=== PATIENT | female | born 1970 | race Caucasian/White ===

== ENCOUNTER 2018-06-23 05:01 | Inpatient (IN) ==
--- NOTE | 2018-05-08 08:47 | Anesthesiology Consultation ---
Date of Service May 08, 2018 Assessment & Plan Chart Review Chart Review: Acceptable Risk for Surgery and Patient NOT seen in Pre Admission Testing Consults Requested none ASA ASA2 Proposed Anesthesia Anesthesia Type: MAC Spinal History Surgery Operation Date: 06/23/18 07:00 Proposed Procedures p Right Anterior Total Hip Arthroplasty - Cornelio Funk DO Height/Weight Height: 5 ft 7 in Weight: 76.204 kg Allergies Allergy/AdvReac Type Severity Reaction Status Date / Time Penicillins Allergy Hives Verified 05/04/18 13:30 Medications Home Medications Medication Instructions Recorded Confirmed Last Taken pizzbgr-fcxfzzxgqcyny-pmzgenwt 2 tab PO Q6H PRN 02/24/18 05/04/18 04/18/18 [Excedrin Migraine] calcium carbonate-vitamin D3 1 cap PO BID 02/24/18 05/04/18 04/14/18 [Calcium 600 + D(3)] ibuprofen 600 mg PO TID PRN 02/24/18 05/04/18 03/29/18 multivitamin 1 tab PO DAILY 02/24/18 05/04/18 04/14/18 naproxen sodium [Aleve] 220 mg PO BID PRN 02/24/18 05/04/18 04/14/18 aspirin [Ecotrin Low Strength] 81 mg PO BID #84 tab 04/30/18 05/04/18 Unknown tramadol 50 mg PO Q6H PRN #40 tab 04/30/18 05/04/18 Unknown acetaminophen [Tylenol Extra 1,000 mg PO Q4H PRN 05/04/18 05/04/18 Unknown Strength] Beta Eliza Beta Eliza Taken Within 24 Hours: No Past Medical History Medical History Anemia Cardiac murmur YOUNGER YEARS (NO LONGER HAS) Depression DX 10 YEARS AGO (NO CURRENT PROBLEMS) Helicobacter pylori (H. pylori) Hyperlipidemia Hypoalbuminemia Migraine Uterine polyp Past Family History Family History Brother Family history of diabetes mellitus Mother Family hx of colon cancer Past Surgical History Surgical History History of esophagogastroduodenoscopy (EGD) History of tooth extraction ORAL IMPLANT History of total hip arthroplasty LEFT ANTERIOR HIP REPLACEMENT (04/2018) Past Anesthesia History No Hx of Anesthesia Complications and No Family Hx of Anesthesia Complications History of PONV No Motion Sickness Screening History of Motion Sickness: No Social History Smoking Status: Never smoker Do You Dip or Chew Tobacco: No Hx Alcohol Use: No Hx Substance Use: No substance use type: does not use Exercise / Class Metabolic Activity III < 4 Walking/Shop/Light housework Testing Electrocardiogram Date: 02/24/18 Findings: + SB @ (At 51) Chest X-Ray Date: 02/24/18 Findings: + NAD Laboratory Results WBC: 10.73 Hc.3 Hct: 27.9 PLATELETS: 205 SODIUM: 140 POTASSIUM: 4.0 CHLORIDE: 110 CO2: 26 BUN: 16 CREATININE: 0.72 GLUCOSE: 124 PT: 11.3 PTT: 27.1 INR: 1.1 UA: TYPE AND SCREEN:
--- NOTE | 2018-06-22 20:36 | History & Physical Report ---
Date of Service June 22, 2018 Assessment & Plan (1) Avascular necrosis of bone of right hip: We will proceed with a right anterior total hip arthroplasty. Postoperatively she will be placed on aspirin for DVT prophylaxis and kept overnight for postop medical management. She plans to use energy physical therapy upon discharge. Present on Admission?: Yes History of Present Illness Chief Complaint: Avascular necrosis of the right hip Primary Care Provider: Kyree Adan MD Sarah is a pleasant 48-year-old female who underwent a left anterior total hip arthroplasty on April 28. She is been doing very well with that. Unfortunately she still having a lot of pain in her right hip. MRI and clinical examination have been diagnostic for avascular necrosis of her right hip with collapse. After failing extensive conservative treatment, she is elected proceed with a right anterior total hip arthroplasty. Allergies Allergy/AdvReac Type Severity Reaction Status Date / Time Penicillins Allergy Hives Verified 05/04/18 13:30 Home Medications Home Medications Medication Instructions Recorded Confirmed Type [id number]-[id number]-fjiqjkma 2 tab PO Q6H PRN 02/24/18 05/04/18 History [Excedrin Migraine] calcium carbonate-vitamin D3 1 cap PO BID 02/24/18 05/04/18 History [Calcium 600 + D(3)] ibuprofen 600 mg PO TID PRN 02/24/18 05/04/18 History multivitamin 1 tab PO DAILY 02/24/18 05/04/18 History naproxen sodium [Aleve] 220 mg PO BID PRN 02/24/18 05/04/18 History aspirin [Ecotrin Low Strength] 81 mg PO BID #84 tab 04/30/18 05/04/18 Rx tramadol 50 mg PO Q6H PRN #40 tab 04/30/18 05/04/18 Rx acetaminophen [Tylenol Extra 1,000 mg PO Q4H PRN 05/04/18 05/04/18 History Strength] Past Med/Surg History Medical History Anemia Cardiac murmur YOUNGER YEARS (NO LONGER HAS) Depression DX 10 YEARS AGO (NO CURRENT PROBLEMS) Helicobacter pylori (H. pylori) Hyperlipidemia Hypoalbuminemia Migraine Uterine polyp Surgical History History of esophagogastroduodenoscopy (EGD) History of tooth extraction ORAL IMPLANT History of total hip arthroplasty LEFT ANTERIOR HIP REPLACEMENT (04/2018) Family History Brother Family history of diabetes mellitus Mother Family hx of colon cancer Social History marital status: Current Living Situation: Spouse Other Information That Helps Us Care for You: No Feels Safe at Home: Yes Safety Concerns: Feels Safe At This Time Smoking Status: Never smoker Do You Dip or Chew Tobacco: No Hx Alcohol Use: No Hx Substance Use: No Beliefs That Will Affect Care: None Preferred Language: Faroese Communication Ability: Effective 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 Required: No Review of Systems All systems reviewed & are unremarkable except as noted in HPI & below Physical Exam 2 Constitutional: WD/WN, vitals as above Eyes: PERRL, conjunctivae normal, anicteric sclerae ENMT: external ear and nose normal, oropharynx normal Neck: trachea midline, no thyromegaly Respiratory: normal respiratory effort Cardiovascular: RRR, no murmur, no edema Gastrointestinal (Abdomen): normal bowel sounds, soft, nontender, no hepatosplenomegaly Musculoskeletal: Physical examination of the right hip reveals decreased range of motion with flexion, internal and external rotation. There is significant groin pain with forced internal rotation of the hip his leg lengths are essentially equal. Psychiatric: A+Ox3, euthymic affect Results & Data Diagnostic Findings Radiographs of the right hip and pelvis do show signs of avascular necrosis of the superior aspect of the femoral head with collapse. MRI of the right hip does show advanced avascular necrosis with subchondral collapse.
[2018-06-23] MEDS ORDERED: ACETAMINOPHEN 500 MG TAB PO SCH (06:00)
[2018-06-23] MEDS ORDERED: ROPIVACAINE 0.5% HCL/PF 150 MG, BUPIVACAINE 0.5% MPF 30 ML, EPINEPHrine 30MG/30ML (OR U... INFIL SCH (06:00)
[2018-06-23] MEDS ORDERED: FAMOTIDINE 20 MG TAB PO SCH (06:00)
[2018-06-23] MEDS ORDERED: GABAPENTIN 300 MG x 3 PO SCH (06:00)
[2018-06-23] MEDS ORDERED: TRANEXAMIC ACID 1,000 MG **IV Pre-op IV SCH (06:00)
[2018-06-23] MEDS ORDERED: LR 60ML/HR IV SCH (06:00)
[2018-06-23] MEDS: LR 500ML BOLUS, THEN 15ML/HR IV SCH ×4 (06:09→11:54)
[2018-06-23] MEDS ORDERED: BUPIVACAINE 0.5 % 5 MG/1 ML PF 10ML VIAL ONE (06:10)
[2018-06-23] MEDS ORDERED: TRANEXAMIC ACID 1,000 MG **IV Intra-op IV SCH (06:30)
[2018-06-23] MEDS ORDERED: MIDAZOLAM HCL 1 MG/ML 2ML VIAL ONE ×2 (06:32→07:19)
[2018-06-23] MEDS ORDERED: fentaNYL citrate 100 MCG/2 ML VIAL ONE (06:32)
[2018-06-23] MEDS ORDERED: PROPOFOL IV EMULSION 10 MG/ML 20 ML VIAL IV ONE ×2 (06:33→07:32)
[2018-06-23] MEDS ORDERED: POVIDONE-IODINE OP SOLN 30 ML BTL ONE (06:33)
[2018-06-23] MEDS ORDERED: ORTHO JOINT ANESTHETIC ONE (06:33)
--- NOTE | 2018-06-23 06:50 | History & Physical Bridge Note ---
Date of Service June 23, 2018 History & Physical Bridge Note I have examined the patient, reviewed the History & Physical and in the interval since the performance of the History & Physical I have noted the following changes of clinical significance: no changes noted
[2018-06-23] MEDS: CEFAZOLIN 2000MG 2,000 MG/15 ML SYR IV SCH ×2 (06:52→07:28)
[2018-06-23] MEDS ORDERED: ATROPINE SULFATE 0.1 MG/ML 10ML SYR IV PRN (07:23)
[2018-06-23] MEDS ORDERED: fentaNYL citrate 100 MCG/2 ML VIAL IV PRN (07:23)
[2018-06-23] MEDS ORDERED: ePHEDrine sulfate 50 MG/ML AMP IV PRN (07:23)
[2018-06-23] MEDS ORDERED: ONDANSETRON INJ 2 MG/ML 2 ML VIAL IV PRN ×2 (07:23→09:55)
[2018-06-23] MEDS ORDERED: PHENYLEPHRINE 100MCG/ML 5ML SYR ONE (08:04)
--- NOTE | 2018-06-23 08:32 | Operative Report ---
Post Operative Report Pre & Post Diagnosis Operation Date: 06/23/18 07:00 Pre-Op Diagnosis: Avascular Necrosis Right Hip Post-Op Diagnosis: Avascular Necrosis Right Hip Procedure Operation Date: 06/23/18 07:00 Actual Procedures p Right Anterior Total Hip Arthroplasty(Right) - Cornelio Funk DO Surgeon Cornelio Funk DO Greenhouse Worker None Estimated Blood Loss 150 Findings Consistent with Post-Op Diagnosis Specimens Right femoral head Complications none Disposition Disposition: Recovery Room Indications Sarah is a pleasant 48-year-old female who presented my office with complaints of increasing bilateral hip pain. MRI and clinical examination was diagnostic for avascular necrosis of the bilateral hips. She underwent a left total hip arthroplasty about 2 months ago and has done very well with that. She is now elected to proceed with a right total hip arthroplasty. Description of Procedure Implants used Biomet Taperloc total hip arthroplasty system with a size 11 high offset Taperloc stem, a 46 mm G7 cup with a 25mm screw, an E1 polyethylene liner, a 32 mm ceramic head with a -3 neck. Patient arrived at the hospital for the above procedure. They were seen in the preoperative holding area and the operative extremity was identified and signed. They were given a spinal anesthetic. They were given a preoperative antibiotic and TXA. They were taken back To the operating room and laid on the table in the supine position. The leg was brought out through a Puristst leg positioner. The hip was then prepped and draped in sterile fashion. A timeout was done and the patient in upper extremities properly identified. An anterior approach was used. Dissection was taken down through the fascia and the tensor muscle belly was retracted laterally and the rectus was retracted medially. The circumflex vessels were identified and ligated. The capsule was then incised and tagged for later repair. The femoral neck was then cut and the femoral head was removed. The acetabulum was exposed. Time was spent doing a complete circumferential labral release. Sequential reaming of the acetabulum up to a size 45 reamer was done. Final reamings were done under fluoroscopy to ensure appropriate version. A Biomet 46 mm G7 cup was then impacted into place. A single 25 mm screw was placed. The E1 polyethylene liner was then snapped into place. Surrounding soft tissues were then injected with 100 cc of an orthopedic pain control cocktail. The proximal femur was then exposed. Sequential broaching up to a size 11 broach was done. Off that broach a size 32 head with a -3 neck was trialed. The hip was reduced and fluoroscopic images showed anatomic alignment of the implants in acceptable length. The broach was removed. The final size 11 high offset Taperloc stem was then impacted into place. A ceramic 32 mm head with a -3 neck was then impacted into place in the hip was reduced. Final fluoroscopic images showed anatomic reduction of the hip. The capsule was then closed with #1 Vicryl suture. A dilute betadyne lavage was then done for 3 minutes. The joint was then irrigated with normal saline solution. The fascia was closed with #1 PDS suture. Skin was closed with 2-0 Vicryl, nicola, and a Jamee VAC dressing. The patient was then transferred to a hospital bed and taken to the post anesthesia care unit in stable condition. They tolerated the procedure well. I attest to the content of the Intraoperative Record and any orders documented therein. Any exceptions are noted below.
--- NOTE | 2018-06-23 08:58 | Fluoroscopy Report ---
FL hip RT 1V CLINICAL HISTORY: RT ANTERIOR HIhip replacement COMPARISON STUDY: None FLUOROSCOPY TIME: 24 seconds NUMBER OF FLUOROSCOPIC IMAGES: 3 FINDINGS: Image intensifier utilization for assistance for an anterior total right hip arthroplasty. IMPRESSION: Anterior total right hip arthroplasty. The above report was generated using voice recognition software. It may contain grammatical, syntax or spelling errors. Electronically signed by: Jason Jarvis M.D. 06/23/2018 8:56 AM
--- NOTE | 2018-06-23 09:06 | Anesthesiology Progress Note ---
Date of Service June 23, 2018 Anesthesia Post Procedure Vital Signs Vital Signs: Temp Pulse Pulse Resp BP Pulse Ox 06/23/18 08:55 43 L 14 96/61 L 100 06/23/18 08:45 50 L 16 99/59 L 100 06/23/18 08:38 96.4 F L 53 L 16 95/56 L 100 06/23/18 05:41 97.9 F 59 L 18 110/65 98 Pain Intensity Left Leg: Pain Intensity: 3 Right Hip: Pain Intensity: 0 Notes Mental Status: alert / awake / arousable and participated in evaluation Patient Amnestic to Procedure: Yes Nausea / Vomiting: adequately controlled Pain: adequately controlled Airway Patency, RR, SpO2: stable & adequate BP & HR: stable & adequate Hydration State: stable & adequate Neuraxial Anesthesia: was administered and sensory block is resolving Anesthetic Complications: no major complications apparent and Pt Satisfied with anesthetic care
--- NOTE | 2018-06-23 09:15 | XRay Report ---
XR hip 1V RT w pelvis CLINICAL HISTORY: IN PACU - A/P PELVIS and LATERAL HIP joint replacement COMPARISON: 04/28/2018 DISCUSSION: Evidence for an interval total right hip arthroplasty. Good contact between prosthetic an d underlying bone. Expected soft tissue postoperative change. Pre-existing total left hip arthroplasty. There is no evidence for soft tissue swelling. IMPRESSION: Anatomic alignment post total right hip arthroplasty. The above report was generated using voice recognition software. It may contain grammatical, syntax or spelling errors. Electronically signed by: Jason Jarvis M.D. 06/23/2018 9:14 AM
[2018-06-23] MEDS ORDERED: NALOXONE HCL 0.4 MG/1 ML VIAL/CARP IV PRN (09:55)
[2018-06-23] MEDS ORDERED: TRAMADOL HCL 50 MG TABLET PO PRN (09:55)
[2018-06-23] MEDS ORDERED: BISACODYL 10 MG SUPP PR PRN (09:55)
[2018-06-23] MEDS ORDERED: HYDROmorphone INJ 0.5 MG/0.5 ML SYR IV PRN (09:55)
[2018-06-23] MEDS ORDERED: METOCLOPRAMIDE HCL INJ 5 MG/ML 2 ML VIAL IV PRN (09:55)
[2018-06-23] MEDS ORDERED: MAGNESIUM HYDROXIDE SUSP 30 ML UDC PO PRN (09:55)
[2018-06-23] MEDS: MULTIVITAMIN TAB PO SCH (11:52)
[2018-06-23] MEDS: ASPIRIN 81 MG ECTAB PO SCH ×2 (11:52→20:04)
[2018-06-23] MEDS: SODIUM CHLORIDE 0.9% 1000ML 1,000 ML IV SCH ×2 (11:52→20:54)
[2018-06-23] MEDS: DOCUSATE SODIUM 100 MG CAP PO SCH ×2 (11:52→20:03)
[2018-06-23] MEDS: CALCIUM 600MG + VIT D 400 IU TAB PO SCH ×2 (11:52→20:03)
[2018-06-23] MEDS: KETOROLAC 30 MG/ML VIAL IV SCH ×3 (11:54→22:33)
[2018-06-23] MEDS: ACETAMINOPHEN 500 MG TAB PO SCH ×2 (14:22→22:22)
[2018-06-23] MEDS: CEFAZOLIN 1000MG 1,000 MG/7.5 ML SYR IV SCH ×2 (15:18→22:22)
[2018-06-23] MEDS ORDERED: SENNA 8.6 MG TAB PO SCH (21:00)
[2018-06-24 06:14] LABS: Basophils # (auto) 0.02 K/uL (0-0.2); Basophils % (auto) 0.2 %; Eosinophils # (auto) 0.02 K/uL (0-0.5); Eosinophils % (auto) 0.2 %; Hematocrit (blood only) 31.7 % (37-47); Hemoglobin 10.1 g/dL (12.0-16.0); Immature Granulocytes # (auto) 0.02 K/uL (0.00-0.02); Immature Granulocytes % (auto) 0.2 %; Lymphocytes # (auto) 1.67 K/uL (1.2-3.4); Lymphocytes % (auto) 18.6 %; Mean Corpuscular Hgb Conc 31.9 g/dL (32-36); Mean Corpuscular Volume 87.6 fL (80-100); Mean Platelet Volume 9.5 fL (7.4-10.4); Monocytes # (auto) 0.67 K/uL (0.11-0.59); Monocytes % (auto) 7.4 %; Neutrophils % (auto) 73.4 %; Platelet Count 233 K/uL (130-400); RDW Coefficient of Variation 13.3 % (11.5-14.5); Red Blood Count 3.62 M/uL (4.2-5.4)
[2018-06-24] MEDS: ACETAMINOPHEN 500 MG TAB PO SCH (06:22)
[2018-06-24] MEDS: KETOROLAC 30 MG/ML VIAL IV SCH ×2 (06:22→11:06)
[2018-06-24 06:40] LABS: BUN Creatinine Ratio 24.4 (10-20); Calcium 8.8 mg/dl (8.5-10.1); Creatinine Clr Calc Pharmacy 93.5 ml/min; Est GFR (African American) 117.1; Potassium 3.6 mmol/L (3.5-5.1)
--- NOTE | 2018-06-24 08:43 | Anesthesiology Progress Note ---
Date of Service June 24, 2018 Anesthesia Post Procedure Vital Signs Vital Signs: Temp Pulse Pulse Pulse Pulse Resp BP 06/24/18 07:04 36.6 C 52 L 16 91/59 L 06/24/18 03:51 36.5 C 55 L 14 92/55 L 06/23/18 23:59 36.3 C L 48 L 14 96/60 L 06/23/18 19:00 36.4 C L 50 L 17 118/87 06/23/18 15:01 37.5 C 78 18 100/66 06/23/18 12:44 36.6 C 62 16 100/63 06/23/18 11:47 36.6 C 61 16 102/68 06/23/18 10:45 36.4 C L 53 L 18 104/67 06/23/18 10:15 36.3 C L 51 L 14 100/64 06/23/18 09:45 48 L 12 100/65 06/23/18 09:35 101/59 L 06/23/18 09:25 36.4 C L 45 L 14 94/57 L 06/23/18 09:15 36.2 C L 47 L 16 92/57 L 06/23/18 09:05 36.2 C L 43 L 14 99/66 L 06/23/18 08:55 43 L 14 96/61 L 06/23/18 08:45 50 L 16 99/59 L Pulse Ox 06/24/18 07:04 99 06/24/18 03:51 97 06/23/18 23:59 97 06/23/18 19:00 99 06/23/18 15:01 98 06/23/18 12:44 100 06/23/18 11:47 100 06/23/18 10:45 100 06/23/18 10:15 100 06/23/18 09:45 100 06/23/18 09:35 06/23/18 09:25 100 06/23/18 09:15 100 06/23/18 09:05 98 06/23/18 08:55 100 06/23/18 08:45 100 Pain Intensity Left Leg: Pain Intensity: 3 Right Hip: Pain Intensity: 0 Notes Mental Status: alert / awake / arousable Nausea / Vomiting: adequately controlled Pain: adequately controlled Airway Patency, RR, SpO2: stable & adequate BP & HR: stable & adequate Hydration State: stable & adequate Neuraxial Anesthesia: was administered and sensory block resolved Anesthetic Complications: no major complications apparent and Pt Satisfied with anesthetic care
[2018-06-24] MEDS: MULTIVITAMIN TAB PO SCH (08:51)
[2018-06-24] MEDS: ASPIRIN 81 MG ECTAB PO SCH (08:51)
[2018-06-24] MEDS: DOCUSATE SODIUM 100 MG CAP PO SCH (08:51)
[2018-06-24] MEDS: CALCIUM 600MG + VIT D 400 IU TAB PO SCH (08:51)
--- NOTE | 2018-06-24 09:17 | Orthopedic Progress Note ---
Date of Service June 24, 2018 Assessment & Plan (1) Avascular necrosis of bone of right hip: Overall she is doing very well. She is already ambulating well with physical therapy. She was hoping to go home today. She is on aspirin for DVT prophylaxis. She can be discharged home later this morning with [facility] physical therapy. She will follow-up with orthopedics in 2 weeks. Present on Admission?: Yes Subjective Sarah was seen and examined at bedside this morning. Overall she is doing very well. She is been up and ambulating without much pain. She has no complaints. Physical Exam 2 Vital Signs (Past 24 Hours): Last Vital Signs Temp 36.6 C 06/24/18 07:04 Pulse 52 L 06/24/18 07:04 Resp 16 06/24/18 07:04 BP 91/59 L 06/24/18 07:04 Pulse Ox 99 06/24/18 07:04 Musculoskeletal: On physical examination of the Right hip, the Jamee VAC dressing is to suction. Her leg lengths are equal. She is active dorsiflexion and plantarflexion of her right ankle. Sensation is intact throughout. Results & Data Laboratory Results H & H 06/24/18 Range/Units 05:58 Hgb 10.1 L (12.0-16.0) g/dL Hct 31.7 L (37-47) % Diagnostic Findings Postoperative x-rays of the right hip show the prosthesis to be in anatomic alignment without any evidence of fracture, dislocation, or loosening.
--- NOTE | 2018-06-24 09:18 | Discharge Summary ---
Date of Service June 24, 2018 Admission HPI Per Admitting Provider Sarah is a pleasant 48-year-old female who underwent a left anterior total hip arthroplasty on April 28. She is been doing very well with that. Unfortunately she still having a lot of pain in her right hip. MRI and clinical examination have been diagnostic for avascular necrosis of her right hip with collapse. After failing extensive conservative treatment, she is elected proceed with a right anterior total hip arthroplasty. Specialty Data Orthopedic H & H 06/24/18 Range/Units 05:58 Hgb 10.1 L (12.0-16.0) g/dL Hct 31.7 L (37-47) % Discharge Data Consultations 06/24/18 08:00 Consult Case Management - Discharge Planning Routine Procedures Performed Operation Date: 06/23/18 07:00 Actual Procedures p Right Anterior Total Hip Arthroplasty(Right) - Cornelio Funk DO Hospital Course (1) Avascular necrosis of bone of right hip: On June 23, 2018 Sarah arrived at [facility] and underwent a right anterior total hip arthroplasty without complication. She had had a spinal anesthetic. Postoperatively she was started on aspirin for DVT prophylaxis and discharged to general orthopedic floors. Her hospital course is uneventful. On postop day #1 her H&H was stable and her pain was well controlled. She was able to ambulate well with physical therapy. She was discharged home with [facility]. She will follow-up with orthopedics in 2 weeks. Discharge Instructions Home Medications Medication Instructions Recorded Confirmed [id number]-ewgnnutvwpder-ccclogxa 2 tab PO Q6H PRN 02/24/18 06/23/18 [Excedrin Migraine] calcium carbonate-vitamin D3 1 cap PO BID 02/24/18 06/23/18 [Calcium 600 + D(3)] ibuprofen 600 mg PO TID PRN 02/24/18 05/04/18 multivitamin 1 tab PO DAILY 02/24/18 05/04/18 naproxen sodium [Aleve] 220 mg PO BID PRN 02/24/18 05/04/18 acetaminophen [Tylenol Extra 1,000 mg PO Q4H PRN 05/04/18 06/23/18 Strength] Previous Rx's Medication Instructions Recorded tramadol 50 mg PO Q6H PRN #40 tab 04/30/18 aspirin [Ecotrin Low Strength] 81 mg PO BID #84 tab 06/24/18
== END 2018-06-24 13:41 | disposition home or self-care (01) | DRG 470 ==
LOC: ASU 05:01 → 3E 08:35